=== PATIENT | female | born 1980 | race Caucasian/White ===

== ENCOUNTER 2020-07-07 13:53 | Emergency (ER) | payer MEDICAID ==
[2020-07-07] MEDS ORDERED: Ibuprofen 600 MG Tab PO ONE (14:17)
--- NOTE | 2020-07-07 14:22 | EDM.PDOC ---
ED HPI GENERAL MEDICAL PROBLEM - General Stated Complaint: FALL 07-07-20 Time Seen by Provider: 07/07/20 14:10 Source of Information: Reports: Patient History Limitations: Reports: No Limitations - History of Present Illness INITIAL COMMENTS - FREE TEXT/NARRATIVE: left ankle rolled on the stairs 15 minutes ago while patient was leaving work. Denies head injury or any other injury. She states she has sprained her left ankle several times in the past. She was able to stand and partial weight bear with assistance after the fall. Location: Reports: Lower Extremity, Left Severity: Mild Improves with: Reports: None Worsens with: Reports: Movement Associated Symptoms: Reports: No Other Symptoms Review of Systems - Review of Systems Review Of Systems: See Below Constitutional: Reports: No Symptoms Eyes: Reports: No Symptoms Ears: Reports: No Symptoms Nose: Reports: No Symptoms Mouth/Throat: Reports: No Symptoms Respiratory: Reports: No Symptoms Cardiovascular: Reports: No Symptoms GI/Abdominal: Reports: No Symptoms Genitourinary: Reports: No Symptoms Musculoskeletal: Reports: Leg Pain, Foot Pain Skin: Reports: No Symptoms Neurological: Reports: No Symptoms Psychiatric: Reports: No Symptoms ED EXAM, GENERAL - Physical Exam Exam: See Below Exam Limited By: No Limitations General Appearance: Alert, No Apparent Distress Ears: Normal External Exam Nose: Normal Inspection Throat/Mouth: Normal Lips, Normal Voice Head: Atraumatic Respiratory/Chest: No Respiratory Distress Cardiovascular: No Edema Peripheral Pulses: 3+: Posterior Tibial (L), Posterior Tibial (R), Dorsalis Pedis (L), Dorsalis Pedis (R) (Female) Exam: Deferred Rectal (Female) Exam: Deferred Back Exam: Normal Inspection, Full Range of Motion Extremities: Normal Inspection, Normal Capillary Refill, Limited Range of Motion (left ankle pain). No: Pedal Edema Neurological: Alert, Oriented, No Motor/Sensory Deficits Psychiatric: Normal Affect, Normal Mood Skin Exam: Warm, Dry, Intact Lymphatic: No Adenopathy Course - Vital Signs Last Recorded V/S: Last Vital Signs Temp 97.0 F 07/07/20 14:44 Pulse 86 07/07/20 14:44 Resp 16 07/07/20 14:44 BP 140/77 07/07/20 14:44 Pulse Ox 100 07/07/20 14:44 - Orders/Labs/Meds Orders: Active Orders 24 hr Category Date Time Status Ankle Min 3V Lt [CR] Stat Exams 07/07/20 14:17 Taken Meds: Medications Discontinued Medications Generic Name Dose Route Start Last Admin Trade Name Adriane PRN Reason Stop Dose Admin Ibuprofen 600 mg 07/07/20 14:17 Motrin PO 07/07/20 14:18 ONETIME ONE Ibuprofen Confirm 07/07/20 14:25 Motrin Administered 07/07/20 14:26 Dose 600 mg .ROUTE .STK-MED ONE Departure - Departure Time of Disposition: 14:55 Disposition: Home, Self-Care 01 Condition: Good Clinical Impression: Ankle sprain Qualifiers: Encounter type: initial encounter Involved ligament of ankle: unspecified ligament Laterality: left Qualified Code(s): S93.402A - Sprain of unspecified ligament of left ankle, initial encounter - Discharge Information *PRESCRIPTION DRUG MONITORING PROGRAM REVIEWED*: Not Applicable *COPY OF PRESCRIPTION DRUG MONITORING REPORT IN PATIENT ISAIAH: Not Applicable Instructions: How to Use a Stirrup Ankle Brace, [id number], How to Use Cold Therapy, [id number], Ankle Sprain, [id number] Referrals: PCP,None [Primary Care Provider] - Forms: ED Department Discharge Additional Instructions: Return to ED for any increased or new concerning symptoms. Ice, elevate today. Ibuprofen 600mg every 6 hours with food for pain. Ice 15-20 minuted every 3-4 hours. Follow up with your primary doctor if symptoms persist. Sepsis Event Note (ED) - Focused Exam Vital Signs: Vital Signs Temp Pulse Resp BP Pulse Ox 07/07/20 14:44 97.0 F 86 16 140/77 100 - My Orders Last 24 Hours: My Active Orders 07/07/20 14:17 Ankle Min 3V Lt [CR] Stat - Assessment/Plan Last 24 Hours: My Active Orders 07/07/20 14:17 Ankle Min 3V Lt [CR] Stat
[2020-07-07] MEDS ORDERED: Ibuprofen 600 MG Tab ONE (14:25)
--- NOTE | 2020-07-07 15:07 | CR ---
DATE OF SERVICE: 07/07/2020 CLINICAL DATA: Fall Left ankle: No priors. There is soft tissue swelling lateral and anterior to the ankle joint. No acute fracture or dislocation. No focal lytic or blastic bone lesions. MTDD
== END 2020-07-07 14:55 | disposition home or self-care (01) ==
LOC: LB.ED 13:53
DX: S93.402A Sprain of unspecified ligament of left ankle, initial encounter (principal); X50.9XXA Other and unspecified overexertion or strenuous movements or postures, initial encounter; Y99.0 Civilian activity done for income or pay
CPT/HCPCS: 73610-LT; 99283-25